=== PATIENT | female | born 1970 | race Caucasian/White ===

== ENCOUNTER 2017-02-20 10:07 | Emergency (ER) | payer OTHER ==
[~2017-02-20] VITALS: Ht 175.3 cm; Wt 108.9 kg
[~2017-02-20 10:07] MED LIST: CIPRO500 MG PO; FLAGYL500 MG PO; SERTRALINE HCL50 MG PO; VENTOLIN HFA18 GM INH
[2017-02-20] MEDS ORDERED: ONDANSETRON ODT8 MG PO (11:36)
[2017-02-20] MEDS ORDERED: PROTONIX40 MG PO (11:36)
== END 2017-02-20 12:00 | disposition home or self-care (01) ==
LOC: ED 10:07
DX: R10.13 Epigastric pain (principal); J45.909 Unspecified asthma, uncomplicated; Z98.890 Other specified postprocedural states; Z88.2 Allergy status to sulfonamides; Z88.8 Allergy status to other drugs, medicaments and biological substances; Z79.899 Other long term (current) drug therapy
CPT/HCPCS: 76705; 80053; 81001; 82150; 83690; 84703; 85025; 96361; 96374; 96375; 99284; J1170; J2405; J7120

== ENCOUNTER 2017-06-24 23:17 | Emergency (ER) | payer OTHER ==
[~2017-06-24] VITALS: Ht 175.3 cm; Wt 108.9 kg
[~2017-06-24 23:17] MED LIST changes: +ONDANSETRON ODT8 MG PO; +PROTONIX40 MG PO
[2017-06-24] MEDS ORDERED: SPIRIVA RESPIMAT4 GM (23:29)
== END 2017-06-25 00:33 | disposition home or self-care (01) ==
LOC: ED 23:17
DX: J45.901 Unspecified asthma with (acute) exacerbation (principal); J06.9 Acute upper respiratory infection, unspecified; Z88.2 Allergy status to sulfonamides; Z88.8 Allergy status to other drugs, medicaments and biological substances; Z79.899 Other long term (current) drug therapy
CPT/HCPCS: 94640; 99282

== ENCOUNTER 2021-09-29 20:11 | Emergency (ER) | payer OTHER ==
[~2021-09-29] VITALS: Ht 175.3 cm; Wt 125.0 kg
[~2021-09-29 20:11] MED LIST changes: +SPIRIVA RESPIMAT4 GM
[2021-09-29] MEDS ORDERED: PAXLOVID CO-PA1 EAC1 PO (20:44)
[2021-09-29] MEDS ORDERED: SPIRIVA18 MCG INH (21:08)
== END 2021-09-29 21:16 | disposition home or self-care (01) ==
LOC: ED 20:11
DX: U07.1 COVID-19 (principal); J45.909 Unspecified asthma, uncomplicated; Z88.2 Allergy status to sulfonamides; Z88.8 Allergy status to other drugs, medicaments and biological substances; Z79.899 Other long term (current) drug therapy
CPT/HCPCS: 71045; 99284-25

== ENCOUNTER 2021-12-09 13:34 | Emergency (ER) | payer OTHER ==
[~2021-12-09] VITALS: Ht 175.3 cm; Wt 126.2 kg
[~2021-12-09 13:34] MED LIST changes: +PAXLOVID CO-PA1 EAC1 PO; +SPIRIVA18 MCG INH
[2021-12-09] MEDS ORDERED: ZITHROMAX250 MG PO (15:52)
--- NOTE | 2021-12-10 06:32 | EKG ---
[facility] [address] [facility] [place], [place] [address] Signed Normal sinus rhythm Normal ECG No previous ECGs available Confirmed by CARLOS MARTINI MD ([id number] on 12/10/2021 6:32:47 AM Electronically Signed By: CARLOS MARTINI MD 12/10/21 0632 PATIENT NAME: CORINNA REID Electrocardiogram DATE OF : 68 PHYSICIAN: CARLOS MARTINI MD REPORT #: [id number] REPORT IS CONFIDENTIAL AND NOT TO BE RELEASED WITHOUT AUTHORIZATION
== END 2021-12-09 16:07 | disposition home or self-care (01) ==
LOC: ED 13:34
DX: J18.9 Pneumonia, unspecified organism (principal); J45.909 Unspecified asthma, uncomplicated; Z88.8 Allergy status to other drugs, medicaments and biological substances; Z88.2 Allergy status to sulfonamides; Z79.899 Other long term (current) drug therapy
CPT/HCPCS: 36415; 71045; 80053; 83735; 84443; 84484; 85025; 85379; 93005; 93010; 99285-25